=== PATIENT | male | born 1950 | race African-American/Black ===

== ENCOUNTER 2021-08-24 14:27 | Outpatient (REF) | payer OTHER, SELFPAY ==
[2021-08-24 15:33] LABS: Erythrocyte Sedimentation Rate 34 MM/HR (0-15)
[2021-08-27 12:51] LABS: Anti Nuclear Antibody Screen POSITIVE (NEGATIVE)
== END 2021-08-24 14:28 | disposition home or self-care (01) ==
LOC: HO.LAB 14:27
PROVIDERS: PCP Internal Medicine; Visit Provider Psychiatry & Neurology Neurology
DX: R26.89 Other abnormalities of gait and mobility (principal)
CPT/HCPCS: 36415; 82550; 85652; 86038; 86039

== ENCOUNTER → 2021-08-27 13:15 | Outpatient (REF) | payer OTHER, SELFPAY | LOC: HO.CARD 13:15 | PROVIDERS: PCP Internal Medicine; Visit Provider Psychiatry & Neurology Neurology | DX: I48.91 Unspecified atrial fibrillation (principal) | CPT/HCPCS: 93225; 93226 ==